=== PATIENT | male | born 1980 | race African-American/Black ===

== ENCOUNTER 2022-06-30 20:57 | Emergency (ER) | payer SELFPAY ==
[2022-06-30] MEDS ORDERED: LORazepam 2 MG/ML SYR.(CARPUJECT) ONE (21:18)
== END 2022-07-01 01:21 | disposition home or self-care (01) ==
LOC: EDBD 20:57 → ERS 20:57
DX: R06.00 Dyspnea, unspecified (principal)
CPT/HCPCS: 93005; 96374; J2060